=== PATIENT | female | born 1940 | race Caucasian/White ===

== ENCOUNTER 2018-02-27 19:03 | Emergency (ER) | payer MEDICAID ==
[~2018-02-27] VITALS: Ht 160 cm; Wt 70.0 kg
[2018-02-27] MEDS ORDERED: LIDOCAINE HCL 1%/EPI 1:200,000 30 ML VIAL MC ONE (19:30)
[2018-02-27] MEDS ORDERED: TETANUS, DIPHTHERIA, PERTUSSIS VAC/PF 0.5ML (>7YR OLD) IM ONE (19:30)
[2018-02-27] MEDS ORDERED: ACETAMINOPHEN 325MG TABLET PO ONE (21:30)
[2018-02-27 21:40] VITALS: BP 138/75
== END 2018-02-27 21:42 | disposition home or self-care (01) ==
LOC: ER 19:03
DX: S09.8XXA Other specified injuries of head, initial encounter (principal); S01.112A Laceration without foreign body of left eyelid and periocular area, initial encounter; S02.2XXA Fracture of nasal bones, initial encounter for closed fracture; S50.312A Abrasion of left elbow, initial encounter; S50.311A Abrasion of right elbow, initial encounter; S80.812A Abrasion, left lower leg, initial encounter; S80.811A Abrasion, right lower leg, initial encounter; W10.0XXA Fall (on)(from) escalator, initial encounter; Y93.89 Activity, other specified; Y92.520 Airport as the place of occurrence of the external cause; E78.00 Pure hypercholesterolemia, unspecified; E03.9 Hypothyroidism, unspecified; R03.0 Elevated blood-pressure reading, without diagnosis of hypertension
CPT/HCPCS: 12011; 70450; 99283